=== PATIENT | female | born 1975 | race Two or more races ===

== ENCOUNTER → 2022-09-16 | Emergency (ER) | payer OTHER ==
[~2022-09-16] VITALS: Ht 157.5 cm; Wt 68.0 kg
[~2022-09-16] MED LIST: HUMULIN N100 UNIT/2 IJ; HUMULIN R100 UNIT/1 SUBCUTANEO
== END | disposition left against medical advice (07) ==
LOC: ER 18:37
DX: Z53.21 Procedure and treatment not carried out due to patient leaving prior to being seen by health care provider (principal)